=== PATIENT | male | born 1990 | race Caucasian/White ===

== ENCOUNTER 2017-12-12 09:06 | Emergency (ER) | payer OTHER, BC ==
[~2017-12-12] VITALS: Ht 165.1 cm; Wt 78.7 kg
[~2017-12-12 09:06] MED LIST: CYCLOBENZAPRINE10 MG PO; FIORICET,ESG1 TABLET PO; MEDROL DOSEPAK4 MG PO; NORCO 5/3251 TABLET PO; PERCOCET 5/31 TABLET PO; PROMETHAZINE HC25 M1 PO; TORADOL10 MG PO; VALIUM2 MG PO
[2017-12-12] MEDS ORDERED: FLEXERIL10 MG PO (12:14)
[2017-12-12] MEDS ORDERED: NAPROSYN500 MG PO (12:14)
[2017-12-12 12:32] VITALS: BP 144/83
== END 2017-12-12 12:34 | disposition home or self-care (01) ==
LOC: EME 09:06
DX: S16.1XXA Strain of muscle, fascia and tendon at neck level, initial encounter (principal); S39.012A Strain of muscle, fascia and tendon of lower back, initial encounter; V49.40XA Driver injured in collision with unspecified motor vehicles in traffic accident, initial encounter; Y92.410 Unspecified street and highway as the place of occurrence of the external cause
CPT/HCPCS: 72040; 72100; 72170; 99281; 99284